=== PATIENT | male | born 1975 | race Caucasian/White ===

== ENCOUNTER 2018-07-10 19:22 | Emergency (ER) | payer BC ==
[2018-07-10] MEDS ORDERED: Cephalexin 250 MG CAP ONE (19:54)
[2018-07-10] MEDS ORDERED: Sulfameth/Trimethoprim DS 800-160mg TAB ONE (19:54)
== END 2018-07-10 19:55 | disposition home or self-care (01) ==
LOC: NAV ERS 19:22
DX: L03.113 Cellulitis of right upper limb (principal); G47.30 Sleep apnea, unspecified
CPT/HCPCS: 99283